=== PATIENT | female | born 1960 | race Caucasian/White ===

== ENCOUNTER 2016-11-08 12:00 | Emergency (ER) | payer BC ==
[2016-11-08 12:15] VITALS: BP 121/78
--- NOTE | 2016-11-08 12:15 | EDM.PDOC ---
ED HPI GENERAL MEDICAL PROBLEM - General Stated Complaint: RT FOOT, LITTLE TOE Time Seen by Provider: 11/08/16 12:10 Source of Information: Reports: Patient History Limitations: Reports: No Limitations - History of Present Illness INITIAL COMMENTS - FREE TEXT/NARRATIVE: 56 yo female presents with right fifth toe deformity after hitting foot against a stack of wood. Sensation intact. No other complaints. Onset: Today, Sudden Duration: Constant Location: Reports: Lower Extremity, Right Quality: Reports: Ache, Throbbing Severity: Moderate Improves with: Reports: None Worsens with: Reports: Movement Context: Reports: Activity Associated Symptoms: Reports: No Other Symptoms Right Feet Pain Score (Numeric/FACES): 4 - Related Data Allergies Allergy/AdvReac Type Severity Reaction Status Date / Time Penicillins Allergy Swollen Verified 11/08/16 12:11 Tongue Home Meds: Home Meds . [No Known Home Meds] 11/08/16 [History] Review of Systems - Review of Systems Review Of Systems: ROS reveals no pertinent complaints other than HPI. ED EXAM, GENERAL - Physical Exam Exam: See Below Exam Limited By: No Limitations General Appearance: Alert, WD/WN, No Apparent Distress Respiratory/Chest: No Respiratory Distress, Lungs Clear, Normal Breath Sounds, No Accessory Muscle Use, Chest Non-Tender Cardiovascular: Normal Peripheral Pulses, Regular Rate, Rhythm, No Edema, No Gallop, No JVD, No Murmur, No Rub Peripheral Pulses: 4+: Dorsalis Pedis (L), Dorsalis Pedis (R) Extremities: Non-Tender, Normal Capillary Refill, Limited Range of Motion (due to pain), Other (R fith digit subluxed outward. ) ED TRAUMA EXTREMITY PROCEDURES - Splinting Right 5th Digit Splint Site: R fifth toe Pre-Procedure NV Status: Normal Post-Procedure NV Status: Normal Splint Material: Juan Ramon Tape Applied & Form Fitted By: Nurse Provider Post-Splint Application NV Check: NV Status Normal, Good Position Complications: No Course - Vital Signs Last Recorded V/S: Last Vital Signs Temp 96.1 F 11/08/16 12:11 Pulse 61 11/08/16 12:11 Resp 16 11/08/16 12:11 BP 121/78 11/08/16 12:11 Pulse Ox 100 11/08/16 12:11 - Orders/Labs/Meds Meds: Medications Discontinued Medications Generic Name Dose Route Start Last Admin Trade Name Virginie PRN Reason Stop Dose Admin Hydrocodone Bitart/Acetaminophen 1 tab 11/08/16 12:39 11/08/16 12:45 [place] 325-10 Mg PO 11/08/16 12:40 1 tab ONETIME ONE Administration - Re-Assessments/Exams Free Text/Narrative Re-Assessment/Exam: 11/08/16 12:40 right fifth metatarsal midshaft fracture. mild displacement Departure - Departure Time of Disposition: 13:18 Disposition: Home, Self-Care 01 Condition: Good Clinical Impression: Closed fracture of metatarsal bone - Discharge Information Instructions: Metatarsal Fracture, Cast or Splint Care, Crutch Use, Easy-to- Read, Pain Medicine Instructions, [id number] Forms: ED Department Discharge Additional Instructions: Put minimal weight on your foot. Call your PCP in the morning to get referral to orthopedic doctor for follow up care this week. If you can not get in call [facility] at and tell them you have a fracture fifth toe and need evaluation. Take medication as neede for pain. Return for any worsening symptoms. Care Plan Goals: [place] [address]
[2016-11-08] MEDS ORDERED: Acetaminophen/HYDROcodone 325-10 MG Tab PO ONE (12:39)
== END 2016-11-08 13:30 | disposition home or self-care (01) ==
LOC: DL.ED 12:00
DX: S92.511A Displaced fracture of proximal phalanx of right lesser toe(s), initial encounter for closed fracture (principal); Z88.0 Allergy status to penicillin; W22.8XXA Striking against or struck by other objects, initial encounter
CPT/HCPCS: 73630; 99283; A9270